=== PATIENT | male | born 1955 | race Caucasian/White ===

== ENCOUNTER → 2018-12-06 | Outpatient (CLI) | payer OTHER ==
--- NOTE | 2018-12-06 10:08 | P.STRESS ---
- Stress Test Note Stress Test Results/Findings: Exam Performed: stress test Exam Date: 12/06/18 Reason for Exam: HYPERTENSION Height: 6 ft 1 in Weight: 127.006 kg Protocol: NELIDA Stage: 3 Duration of Exercise: 9:00 Resting Heart Rate: 63 Resting Blood Pressure: 123/77 Maximum Achieved Heart Rate: 139 Maximum Achieved Blood Pressure: 193/115 85% PMHR: 133 100% PMHR: 156 METS: 10.1 Technologist Comment: Stress Test Results/Findings: This is a 63-year-old male with history of hypertension and diabetes being evaluated for cardiac status. Patient has history of hypertension, diabetes, and also smoking history. Stress data: Baseline EKG showed a sinus rhythm with normal OK interval and QRS duration. Blood pressure at rest is 123/77 with pulse rate of 63. Patient walked on the Nelida protocol for about 9 minutes achieving a maximum heart rate of 139 with a blood pressure of 193/115. EKGs taken during exercise showed mild ST depression in inferolateral leads of about half a millimeter. These changes resolved quickly in the post excess.. Patient did not experience any chest pain. Final impression: #1. Borderline ST-T changes during exercise most probably related to high blood pressure response during exercise and probably the stress test is negative for ischemia #20. Patient did not express any chest pain #3. No arrhythmias detected #4. Patient excess capacity is good.
--- NOTE | 2018-12-06 10:15 | US ---
EXAMINATION TYPE: US carotid duplex BILAT DATE OF EXAM: 12/06/2018 COMPARISON: NONE CLINICAL HISTORY: R07.9 CHEST PAIN, R06.02 SOB. No hx of TIA, HTN controlled with meds, previous smok er, no dizziness EXAM MEASUREMENTS: RIGHT: Peak Systolic Velocity (PSV) cm/sec ----- Right CCA: 74.5 ----- Right ICA: 76.3 ----- Right ECA: 103.1 ICA/CCA ratio: 1.0 RIGHT: End Diastole cm/sec ----- Right CCA: 22.7 ----- Right ICA: 25.8 ----- Right ECA: 15.0 LEFT: Peak Systolic Velocity (PSV) cm/sec ----- Left CCA: 98.0 ----- Left ICA: 100.5 ----- Left ECA: 100.5 ICA/CCA ratio: 1.0 LEFT: End Diastole cm/sec ----- Left CCA: 31.1 ----- Left ICA: 42.4 ----- Left ECA: 18.4 VERTEBRALS (direction of flow): Right Vertebral: Antegrade Left Vertebral: Antegrade Rhythm: Normal IMPRESSION: No plaque, elevated velocities, wall thickening or significant stenosis visualized. Criteria for Assigning % of Stenosis / Diameter reduction (Estimation based on the indirect measurements of the internal carotid artery velocities (ICA PSV). 1. Normal (no stenosis)=ICA PSV < 125 cm/s: ratio < 2.0: ICA EDV<40 cm/s. 2. Less than 50% stenosis=ICA PSV < 125 cm/s: ratio < 2.0: ICA EDV<40 cm/s. 3. 50 to 69% stenosis=ICA PSV of 125 to 230 cm/s: ration 2.0 ? 4.0: ICA EDV 40-100 cm/s. 4. Greater than 70% stenosis to near occlusion= ICA PSV > 230 cm/s: ratio > 4.0: ICA EDV > 100 cm/s. 5. Near occlusion= ICA PSV velocities may be low or undetectable: variable ratio and ICA EDV. 6. Total occlusion=unable to detect flow.
--- NOTE | 2018-12-06 12:40 | ECHOF ---
Referral Reason:R07.9 CHEST PAIN, R06.02 SOB MEASUREMENTS -------- HEIGHT: 180.3 cm WEIGHT: 127.0 kg BP: 123/77 RVIDd: 3.5 cm (< 3.3) IVSd: 1.3 cm (0.6 - 1.1) LVIDd: 3.9 cm (3.9 - 5.3) LVPWd: 1.3 cm (0.6 - 1.1) IVSs: 1.8 cm LVIDs: 2.9 cm LVPWs: 2.1 cm LA Diam: 4.2 cm (2.7 - 3.8) LAESV Index (A-L): 37.86 ml/m Ao Diam: 3.3 cm (2.0 - 3.7) AV Cusp: 2.5 cm (1.5 - 2.6) EPSS: 0.6 cm MV E Michael: 0.64 m/s MV DecT: 277 ms MV A Michael: 0.77 m/s MV E/A Ratio: 0.82 MV EF SLOPE: 92.86 mm/s (70 - 150) MV EXCURSION: 1.53 cm (> 18.000) FINDINGS -------- Sinus rhythm. This was a technically good study. The left ventricular size is normal. There is mild concentric left ventricular hypertrophy. Overa ll left ventricular systolic function is normal with, an EF between 60 - 65 %. The right ventricle is mildly enlarged. LA is midly dilated 29-33ml/m2. The right atrium is normal in size. Interatrial septal aneurysm. The aortic valve is trileaflet and appears structurally normal. There is trace to mild mitral regurgitation. Trace/mild (physiologic) pulmonic regurgitation. The aortic root size is normal. IVC Not well visulized. There is no pericardial effusion. CONCLUSIONS -------- 1. Sinus rhythm. 2. This was a technically good study. 3. The left ventricular size is normal. 4. There is mild concentric left ventricular hypertrophy. 5. Overall left ventricular systolic function is normal with, an EF between 60 - 65 %. 6. The right ventricle is mildly enlarged. 7. LA is midly dilated 29-33ml/m2. 8. The right atrium is normal in size. 9. Interatrial septal aneurysm. 10. The aortic valve is trileaflet and appears structurally normal. 11. There is trace to mild mitral regurgitation. 12. Trace/mild (physiologic) pulmonic regurgitation. 13. The aortic root size is normal. 14. IVC Not well visulized. 15. There is no pericardial effusion. TRACTOR DRIVER TEAMSTER: KATHRYN Mccallum
--- NOTE | 2018-12-09 14:55 | EST ---
Stress Test Results/Findings: Exam Performed: stress test Exam Date: 12/06/18 Reason for Exam: HYPERTENSION Height: 6 ft 1 in Weight: 127.006 kg Protocol: NELIDA Stage: 3 Duration of Exercise: 9:00 Resting Heart Rate: 63 Resting Blood Pressure: 123/77 Maximum Achieved Heart Rate: 139 Maximum Achieved Blood Pressure: 193/115 85% PMHR: 133 100% PMHR: 156 METS: 10.1 Technologist Comment: Stress Test Results/Findings: This is a 63-year-old male with history of hypertension and diabetes being evaluated for cardiac status. Patient has history of hypertension, diabetes, and also smoking history. Stress data: Baseline EKG showed a sinus rhythm with normal TN interval and QRS duration. Blood pressure at rest is 123/77 with pulse rate of 63. Patient walked on the Nelida protocol for about 9 minutes achieving a maximum heart rate of 139 with a blood pressure of 193/115. EKGs taken during exercise showed mild ST depression in inferolateral leads of about half a millimeter. These changes resolved quickly in the post excess.. Patient did not experience any chest pain. Final impression: #1. Borderline ST-T changes during exercise most probably related to high blood pressure response during exercise and probably the stress test is negative for ischemia #20. Patient did not express any chest pain #3. No arrhythmias detected #4. Patient excess capacity is good. MTDD
== END | disposition home or self-care (01) ==
LOC: RADUSMAIN 07:41
PROVIDERS: ATTEND Family Medicine
DX: I34.0 Nonrheumatic mitral (valve) insufficiency (principal); I37.1 Nonrheumatic pulmonary valve insufficiency; I38 Endocarditis, valve unspecified; R06.02 Shortness of breath
CPT/HCPCS: 93017; 93306; 93880

== ENCOUNTER 2019-05-08 07:29 | Day surgery (SDC) | payer OTHER ==
[2019-05-06 14:50] VITALS: BMI 35.9
[2019-05-08] MEDS ORDERED: LACTATED RINGERS 1,000 ML IV ONE (07:49)
[2019-05-08 08:01] VITALS: RESP 16; TEMP 97
[2019-05-08] MEDS ORDERED: LIDOCAINE 1% 20 ML VIAL (10MG/ML) FOR IV START INTRADERMA ONE (08:02)
[2019-05-08 08:11] LABS: Glucose,Whole Blood 168 mg/dL (75-99)
[2019-05-08] MEDS ORDERED: PROPOFOL 10 MG/ML 20 ML VIAL IV ONE (08:25)
[2019-05-08] MEDS ORDERED: LIDOCAINE 1% INJ 10MG/ML (20 ML MDV) ONE (08:25)
--- NOTE | 2019-05-08 08:37 | P.GSHP ---
History of Present Illness H&P Date: 05/08/19 Chief Complaint: Anemia This is a 64-year-old male who presents today for EGD and colonoscopy. Patient pain currently workup for anemia. Past Medical History Past Medical History: Diabetes Mellitus, Hypertension, Sleep Apnea/CPAP/BIPAP Additional Past Medical History / Comment(s): hx hiatal hernia, anemia, History of Any Multi-Drug Resistant Organisms: None Reported Past Surgical History: Hernia Repair, Tonsillectomy Additional Past Surgical History / Comment(s): DESHAWN FUNDLOPLASTY, colonoscopy, EGD Past Anesthesia/Blood Transfusion Reactions: No Reported Reaction Smoking Status: Former smoker - Past Family History Father Family Medical History: Cancer Medications and Allergies Home Medications Medication Instructions Recorded Confirmed Type Cholecalciferol [Vitamin D3] 400 unit PO DAILY 05/23/16 05/08/19 History Modafinil [Provigil] 200 mg PO DAILY 05/23/16 05/08/19 History Topiramate [Topamax] 25 mg PO HS 05/23/16 05/08/19 History metFORMIN HCL [Glucophage] 1,000 mg PO BID 05/23/16 05/08/19 History sitaGLIPtin [Januvia] 100 mg PO DAILY 05/23/16 05/08/19 History Lisinopril [Prinivil] 5 mg PO DAILY 05/26/16 05/08/19 History Allergies Allergy/AdvReac Type Severity Reaction Status Date / Time No Known Allergies Allergy Verified 05/06/19 14:41 Surgical - Exam Vital Signs Temp Pulse Resp BP Pulse Ox 97 F L 66 16 134/68 98 05/08/19 07:53 05/08/19 07:53 05/08/19 07:53 05/08/19 07:53 05/08/19 07:53 - General well developed, well nourished, no distress - Eyes PERRL - ENT normal pinna - Neck no masses - Respiratory normal expansion - Cardiovascular Rhythm: regular - Abdomen Abdomen: soft, non tender Results - Labs Abnormal Lab Results - Last 24 Hours (Table) 05/08/19 Range/Units 07:57 POC Glucose (mg/dL) 168 H (75-99) mg/dL Assessment and Plan Assessment: Anemia. We'll perform EGD and screening colonoscopy.
--- NOTE | 2019-05-08 08:55 | P.OP ---
Date of Procedure: 05/08/19 Preoperative Diagnosis: Anemia Postoperative Diagnosis: Mild gastritis Diverticulosis Procedure(s) Performed: EGD Colonoscopy Anesthesia: MAC Surgeon: Elliot Summers Pathology: other (Antrum, esophagus) Condition: stable Disposition: PACU Description of Procedure: The patient's placed on the endoscopy table in the lateral position. He received IV sedation. The gastroscope placed oropharynx passed in the esophagus and into the stomach. Scope some placed through the pylorus. First and second portion of the duodenum appeared normal. The scope was then brought back the antrum was mildly inflamed. A biopsies was performed. Scope was then retroflexed and remainder of the stomach appeared normal. The patient a previous Lizzie fundal plication. The fundoplication wrap appeared to be in appropriate position. The distal esophagus appeared very minimal inflamed and random biopsies performed. The proximal esophagus appeared normal. Scope was withdrawn for patient. Next digital rectal exam was performed which revealed no valves. The flexible colonoscope was then placed patient anus and passed throughout the entire colon. The ileocecal valve sutures. The cecum, ascending and transverse colon appeared normal. In the descending and; was mild diverticular changes. Scope was then brought back the rectum and this appeared normal. Scope withdrawn for patient.
[2019-05-08 09:20] LABS: Glucose,Whole Blood 171 mg/dL (75-99)
[2019-05-08 09:27] VITALS: BP 121/72; PULSE 58
== END 2019-05-08 10:02 | disposition home or self-care (01) ==
LOC: ORWHC2ENDO 07:29
PROVIDERS: ATTEND Surgery
DX: D64.9 Anemia, unspecified (principal); K21.0 Gastro-esophageal reflux disease with esophagitis; K29.70 Gastritis, unspecified, without bleeding; K31.9 Disease of stomach and duodenum, unspecified; K57.30 Diverticulosis of large intestine without perforation or abscess without bleeding; I10 Essential (primary) hypertension; E11.9 Type 2 diabetes mellitus without complications; G47.33 Obstructive sleep apnea (adult) (pediatric); Z87.891 Personal history of nicotine dependence; Z79.84 Long term (current) use of oral hypoglycemic drugs; Z79.899 Other long term (current) drug therapy; Z87.19 Personal history of other diseases of the digestive system; Z98.890 Other specified postprocedural states; Z80.9 Family history of malignant neoplasm, unspecified
CPT/HCPCS: 88305; 45378; 43239; J2001; J2704

== ENCOUNTER 2024-08-25 11:33 | Day surgery (SDC) | payer MEDICARE, OTHER ==
[2024-08-19 15:14] VITALS: BMI 33.6
[~2024-08-25 11:33] MED LIST: LACTATED RINGERS 1,000 ML IV SCH; LIDOCAINE 1% (10MG/ML) FOR IV START INTRADERMA PRN
[2024-08-25 11:51] VITALS: RESP 16; TEMP 96.8
[2024-08-25 11:57] LABS: Glucose,Whole Blood 109 mg/dL (70-110)
[2024-08-25] MEDS: IV FLUID CONTINUATION 500 ML IV ONE (11:57)
[2024-08-25] MEDS: SODIUM CHLORIDE 0.9% 500 ML 500 ML IV ONE (11:57)
[2024-08-25] MEDS ORDERED: LIDOCAINE 1% INJ 10MG/ML (20 ML MDV) ONE (12:20)
[2024-08-25] MEDS ORDERED: PROPOFOL 10 MG/ML 20 ML VIAL IV ONE (12:20)
--- NOTE | 2024-08-25 12:29 | P.GSHP ---
History of Present Illness H&P Date: 08/25/24 Chief Complaint: Screening colonoscopy Is a 69-year-old male presents today for screening colonoscopy. Patient denies any significant GI complaints Past Medical History Past Medical History: Diabetes Mellitus, Hypertension, Sleep Apnea/CPAP/BIPAP Additional Past Medical History / Comment(s): hx hiatal hernia, anemia, History of Any Multi-Drug Resistant Organisms: None Reported Past Surgical History: Hernia Repair, Tonsillectomy Additional Past Surgical History / Comment(s): DEHSAWN FUNDLOPLASTY, colonoscopy, EGD Past Anesthesia/Blood Transfusion Reactions: No Reported Reaction Additional Past Anesthesia/Blood Transfusion Reaction / Comment(s): no blood transfusion Smoking Status: Former smoker - Past Family History Father Family Medical History: Cancer Additional Family Medical History / Comment(s): liver Medications and Allergies Home Medications Medication Instructions Recorded Confirmed Type Cholecalciferol [Vitamin D3] 400 unit PO DAILY 05/23/16 08/25/24 History metFORMIN HCL [Glucophage] 1,000 mg PO BID 05/23/16 08/25/24 History modafiniL [Provigil] 200 mg PO DAILY 05/23/16 08/25/24 History sitaGLIPtin [Januvia] 100 mg PO DAILY 05/23/16 08/25/24 History Lisinopril [Prinivil] 5 mg PO DAILY 05/26/16 08/25/24 History Semaglutide [Rybelsus] 7 mg PO DAILY 08/19/24 08/25/24 History Allergies Allergy/AdvReac Type Severity Reaction Status Date / Time No Known Allergies Allergy Verified 08/25/24 11:43 Surgical - Exam Vital Signs Temp Pulse Resp BP Pulse Ox 96.8 F L 72 16 152/74 97 08/25/24 11:47 08/25/24 11:47 08/25/24 11:47 08/25/24 11:47 08/25/24 11:47 - General well developed, well nourished, no distress - Eyes PERRL - ENT normal pinna - Neck no masses - Respiratory normal expansion - Cardiovascular Rhythm: regular - Abdomen Abdomen: soft, non tender Assessment and Plan Assessment: Will perform screening colonoscopy.
--- NOTE | 2024-08-25 12:40 | P.OP ---
Date of Procedure: 08/25/24 Preoperative Diagnosis: Screening colonoscopy Postoperative Diagnosis: Mild diverticulosis Procedure(s) Performed: Colonoscopy Anesthesia: MAC Surgeon: Elliot Summers Pathology: none sent Condition: stable Disposition: PACU Description of Procedure: The patient was placed on the endoscopy table in the lateral position. He received IV sedation. Digital rectal exam was performed. This revealed no abnormality. Possible colonoscope was then placed patient anus passed throughout the entire colon. The ileocecal valve was visualized. The cecum, ascending and transverse colon appeared normal. The descending sigmoid colon there is a few scattered diverticuli. Scope was brought back to the rectum this appeared normal. Scope withdrawn for the patient.
[2024-08-25 12:54] VITALS: BP 116/72; PULSE 58
== END 2024-08-25 13:21 | disposition home or self-care (01) ==
LOC: ORWHC2ENDO 11:33
PROVIDERS: ATTEND Surgery
DX: Z12.11 Encounter for screening for malignant neoplasm of colon (principal); K57.30 Diverticulosis of large intestine without perforation or abscess without bleeding; E11.9 Type 2 diabetes mellitus without complications; I10 Essential (primary) hypertension; G47.33 Obstructive sleep apnea (adult) (pediatric); Z79.84 Long term (current) use of oral hypoglycemic drugs; Z87.891 Personal history of nicotine dependence; Z90.89 Acquired absence of other organs; Z99.89 Dependence on other enabling machines and devices; Z98.890 Other specified postprocedural states
CPT/HCPCS: J2003; J2704; G0121